=== PATIENT | male | born 1985 | race Caucasian/White ===

== ENCOUNTER 2016-06-15 23:27 | Emergency (ER) | payer BC, OTHER ==
[2016-06-16 00:37] VITALS: BP 129/83; PULSE 80; TEMP 98.2; BMI 29.2
[2016-06-16] MEDS ORDERED: DIPHTH,PERTUSS(ACELL),TET VAC 0.5 ML VIAL IM ONE (00:46)
[2016-06-16] MEDS ORDERED: BACITRACIN 30 GM TUBE TOPICAL OINTMENT TP ONE (00:47)
--- NOTE | 2016-06-16 01:09 | PDOC ---
History of Present Illness - General History Source: Patient Exam Limitations: No Limitations - History of Present Illness Initial Comments: 06/16/16 01:29 The patient is a 31 year old male with no significant past medical history, presenting to the Emergency Department with possible hand fracture and laceration. The patient reports that he punched a wall at home earlier in the night, injuring his right hand. He reports pain over his knuckles and a small cut to his knuckles with swelling. He admits that he is right handed. 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 He is unsure of when his last tetanus vaccination was. The patient denies any other injury. Patient denies numbness or tingling to hand. Patient denies limited range of motion of fingers. <Tesha Prasad - Last Filed: 06/16/16 01:29> <Pauly Gupta - Last Filed: 06/16/16 04:03> - General Chief Complaint: Pain Stated Complaint: RT HAND INJURY Time Seen by Provider: 06/16/16 00:36 Past History <Tesha Prasad - Last Filed: 06/16/16 01:29> - Psycho/Social/Smoking Cessation Hx Anxiety: No Suicidal Ideation: No Smoking Status: No Smoking History: Never smoked Have you smoked in the past 12 months: No Number of Cigarettes Smoked Daily: 0 Information on smoking cessation initiated: No Hx Alcohol Use: No Drug/Substance Use Hx: No <Pauly Gupta - Last Filed: 06/16/16 04:03> - Past Medical History Allergies/Adverse Reactions: Allergies Allergy/AdvReac Type Severity Reaction Status Date / Time No Known Allergies Allergy Verified 06/16/16 00:34 Home Medications: Ambulatory Orders NK [No Known Home Medication] 06/16/16 Review of Systems - Review of Systems Able to Perform ROS?: Yes Comments:: 06/16/16 01:29 GENERAL/CONSTITUTIONAL: No fever or chills. No weakness. HEAD, EYES, EARS, NOSE AND THROAT: No change in vision. No ear pain or discharge. No sore throat. CARDIOVASCULAR: No chest pain or shortness of breath. RESPIRATORY: No cough, wheezing, or hemoptysis. GASTROINTESTINAL: No nausea, vomiting, diarrhea or constipation. GENITOURINARY: No dysuria, frequency, or change in urination. MUSCULOSKELETAL: + pain at right hand knuckles, + swelling. No muscle pain. No neck or back pain. SKIN: No rash NEUROLOGIC: No headache, vertigo, loss of consciousness, or change in strength/ sensation. ENDOCRINE: No increased thirst. No abnormal weight change. HEMATOLOGIC/LYMPHATIC: No anemia, easy bleeding, or history of blood clots. ALLERGIC/IMMUNOLOGIC: No hives or skin allergy. <Tesha Prasad - Last Filed: 06/16/16 01:29> *Physical Exam - Vital Signs Last Vital Signs Temp Pulse Resp BP Pulse Ox 98.2 F 80 20 129/83 98 06/16/16 00:34 06/16/16 00:34 06/16/16 00:34 06/16/16 00:34 06/16/16 00:34 - Physical Exam Comments: 06/16/16 01:29 GENERAL: Awake, alert, and fully oriented, in no acute distress HEAD: No signs of trauma EYES: PERRLA, EOMI, sclera anicteric, conjunctiva clear ENT: Auricles normal inspection, hearing grossly normal, nares patent, oropharynx clear without exudates. Moist mucosa EXTREMITIES: Swelling and tenderness over the 5th MCP joint. Normal range of motion, no edema. No clubbing or cyanosis. No cords, erythema NEUROLOGICAL: Cranial nerves II through XII grossly intact. Normal speech, normal gait SKIN: Warm, Dry, normal turgor, no rashes or lesions noted. <Tesha Prasad - Last Filed: 06/16/16 01:29> - Vital Signs Last Vital Signs Temp Pulse Resp BP Pulse Ox 98.2 F 80 20 129/83 98 06/16/16 00:34 06/16/16 00:34 06/16/16 00:34 06/16/16 00:34 06/16/16 00:34 <Pauly Gupta - Last Filed: 06/16/16 04:03> ED Treatment Course - Medications Given in the ED: ED Medications Discontinued Medications Generic Name Dose Route Start Last Admin Trade Name Freq PRN Reason Stop Dose Admin Bacitracin 1 applic 06/16/16 00:47 06/16/16 00:56 Bacitracin - TP 06/16/16 00:48 1 applic ONCE ONE Administration Diphtheria/Tetanus/Acell Pertussis 0.5 ml 06/16/16 00:46 06/16/16 00:56 Adacel Adolescent/Adult - IM 06/16/16 00:47 0.5 ml .ONCE ONE Administration <Tesha Prasad - Last Filed: 06/16/16 01:29> Medical Decision Making - Medical Decision Making 06/16/16 04:01 Pt punched a wall and comes with 5th MCP joint swelling. He has a boxer's fx, as evidenced on XR. He has FROM, and good capillary refill. He was placed in an ulnar gutter splint and he will be sent to Dr. Artis ([facility]) for follow up and casting as needed. Pt works for [employer], and I will give him a note for work. <Pauly Gupta - Last Filed: 06/16/16 04:03> *DC/Admit/Observation/Transfer - Attestations Scribe Attestion: 06/16/16 01:30 Documentation prepared by Tesha Prasad, acting as certified medical coding specialist for Pauly Gupta MD. <Tesha Prasad - Last Filed: 06/16/16 01:29> - Discharge Dispostion Admit: No <Pauly Gupta - Last Filed: 06/16/16 04:03> Diagnosis at time of Disposition: Boxers fracture - Discharge Dispostion Disposition: HOME Condition at time of disposition: Stable - Referrals Referrals: Fitz Artis MD [Staff Physician] - - Patient Instructions Printed Discharge Instructions: DI for Boxer's Fracture - Post Discharge Activity Work/School Note: Back to Work
[2016-06-16] MEDS ORDERED: IBUPROFEN 600 MG TABLET (FP) PO ONE ×2 (01:33→01:34)
== END 2016-06-16 01:36 | disposition home or self-care (01) ==
LOC: JER 23:27
PROC: 2W38X1Z Immobilization of Right Upper Extremity using Splint (ICD-10-PCS; principal; 2016-06-15)
DX: S62.396A Other fracture of fifth metacarpal bone, right hand, initial encounter for closed fracture (principal); W22.8XXA Striking against or struck by other objects, initial encounter; Y93.89 Activity, other specified; Y92.038 Other place in apartment as the place of occurrence of the external cause
CPT/HCPCS: 73130-TC-RT; 99282-25

== ENCOUNTER 2018-02-28 08:42 | Emergency (ER) | payer OTHER ==
[2018-02-28 08:46] VITALS: BP 103/58; PULSE 59; TEMP 97.8; BMI 29.9
--- NOTE | 2018-02-28 09:29 | PDOC ---
History of Present Illness - General Chief Complaint: Syncope/Near Syncope Stated Complaint: DIZZINESS Time Seen by Provider: 02/28/18 09:01 History Source: Patient Exam Limitations: No Limitations - History of Present Illness Initial Comments: 02/28/18 09:18 32 yo M with no past medical history presents to the emergency department after a near syncopal episode while at Admission/Registration after a blood draw. Per the patient, he has never had this happen before. After the blood draw, he felt lightheaded, nauseous, and had blurry vision but denies LOC. He was fasting for the tests with last meal and water intake last night. He was recently placed on macrobid and pyridium for a suspected UTI by his PMD last Saturday after having dysuria beginning saturday with resolution of symptoms yesterday. The patient states he has had one partner for the last few months and denies hx of STDs. Denies the following: fever, chills, nausea, vomiting, ears/nose/throat pain, chest pain, SOB, abdominal pain, hematuria, diarrhea, dysuria, hematochezia, palpitations, and leg pain/swelling. Pmhx: None Shx: None Allergies: NKDA Social: Denies tobacco, alcohol, and substance abuse. Past History - Past Medical History Allergies/Adverse Reactions: Allergies Allergy/AdvReac Type Severity Reaction Status Date / Time No Known Allergies Allergy Verified 02/28/18 08:46 Home Medications: Ambulatory Orders NK [No Known Home Medication] 06/16/16 COPD: No Other medical history: denies - Immunization History Immunization Up to Date: Yes - Suicide/Smoking/Psychosocial Hx Smoking Status: No Smoking History: Never smoked Have you smoked in the past 12 months: No Number of Cigarettes Smoked Daily: 0 Hx Alcohol Use: Yes Drug/Substance Use Hx: No Substance Use Type: None Review of Systems - Review of Systems Able to Perform ROS?: Yes Is the patient limited Bolivian proficient: No Constitutional: No: Chills, Diaphoresis, Fever, Weakness HEENTM: No: Eye Pain, Recent change in vision, Ear Pain, Nose Pain, Throat Pain , Mouth Pain Respiratory: No: Cough, Shortness of Breath, Hemoptysis Cardiac (ROS): No: Chest Pain, Lightheadedness, Palpitations, Syncope, Chest Tightness ABD/GI: No: Constipated, Diarrhea, Nausea, Poor Appetite, Poor Fluid Intake, Rectal Bleeding, Vomiting, Tarry Stools : No: Burning, Dysuria, Hematuria, Urgency, Testicular Mass, Testicular Swelling, Testicular Pain Musculoskeletal: No: Back Pain, Joint Pain, Neck Pain Integumentary: No: Lesions, Lumps, Rash Neurological: No: Headache, Numbness, Tremors, Weakness, Ataxia, Dizziness Psychiatric: No: Stressors Endocrine: No: Unexplained Weight Gain Hematologic/Lymphatic: No: Anemia *Physical Exam - Vital Signs Last Vital Signs Temp Pulse Resp BP Pulse Ox 97.8 F 59 L 20 103/58 L 99 02/28/18 08:44 02/28/18 08:44 02/28/18 08:44 02/28/18 08:44 02/28/18 08:44 - Physical Exam General Appearance: Yes: Nourished, Appropriately Dressed. No: Apparent Distress, Intoxicated HEENT: positive: EOMI, MARCELLO, Normal ENT Inspection, Normal Voice, Symmetrical, TMs Normal, Pharynx Normal, Hearing Grossly Normal. negative: Pale Conjunctivae , Scleral Icterus (R), Scleral Icterus (L), Muffled/Hoarse voice, Nasal Congestion, Sinus Tenderness, Excessive drooling Neck: positive: Trachea midline. negative: Tender, Lymphadenopathy (R), Lymphadenopathy (L), Tender lateral, Tender midline Respiratory/Chest: positive: Lungs Clear, Normal Breath Sounds. negative: Chest Tender, Respiratory Distress, Accessory Muscle Use, Crackles, Rales, Rhonchi, Stridor, Wheezing, Hyperresonant Cardiovascular: positive: Regular Rhythm, Regular Rate, S1, S2. negative: Systolic Murmur Gastrointestinal/Abdominal: positive: Normal Bowel Sounds, Flat, Soft. negative : Tender, Pulsatile Mass, Distended Lymphatic: negative: Adenopathy Musculoskeletal: positive: Normal Inspection. negative: CVA Tenderness, Vertebral Tenderness Extremity: positive: Normal Capillary Refill, Normal Inspection, Normal Range of Motion. negative: Tender, Swelling, Calf Tenderness Integumentary: positive: Normal Color, Dry, Warm. negative: Pale, Cold, Clammy , Diaphoresis, Moist Neurologic: positive: financial assistance specialist II-XII NML intact, Fully Oriented, Alert, Normal Mood/ Affect, Normal Response, Motor Strength 5/5. negative: Facial Droop, Sensory Deficit Moderate Sedation - Procedure Monitoring Vital Signs: Procedure Monitoring Vital Signs Temperature 97.8 F 02/28/18 08:44 Pulse Rate 59 L 02/28/18 08:44 Respiratory Rate 20 02/28/18 08:44 Blood Pressure 103/58 L 02/28/18 08:44 O2 Sat by Pulse Oximetry (%) 99 02/28/18 08:44 Medical Decision Making - Medical Decision Making 02/28/18 10:07 32 yo M with no past medical history presents to the emergency department after a near syncopal episode while at Admission/Registration after a blood draw Initial vitals: Initial Vital Signs Temp Pulse Resp BP Pulse Ox 97.8 F 59 L 20 103/58 L 99 02/28/18 08:44 02/28/18 08:44 02/28/18 08:44 02/28/18 08:44 02/28/18 08:44 Work up: ddx: syncope (vasovagal vs cardiac vs metabolic disturbance vs infectious etiology). Laboratory Tests 02/28/18 02/28/18 10:00 10:00 Urine Color Yellow Urine Appearance Clear Urine pH 5.0 Ur Specific Park 1.027 Urine Protein 1+ H Urine Glucose (UA) Negative Urine Ketones Negative Urine Blood Negative Urine Nitrite Positive Urine Bilirubin Negative Urine Urobilinogen 4.0 e.u/dl Ur Leukocyte Esterase Negative Urine WBC (Auto) 1 Urine RBC (Auto) 1 Urine Mucus Few C. trachomatis (JERRY) Negative N. gonorrhoeae (JERRY) Negative His labs were drawn previously and were within normal limits. Per the patient, he was diagnosed with a UTI from his pMD and started on macorbid and pyridium. 02/28/18 12:31 Refused prophylactic antibiotics for possible STD infection. At the time of discharge, the patient was re-evaluated. He remained asymptomatic , well appearing, and was able to ambulate on his own volition. I discussed the physical exam findings, ancillary test results, and final diagnoses with the patient. I answered all of the patients questions to their satisfaction. The patient was satisfied with the care received and felt comfortable with the discussed discharge and treatment plan and accepted it. They agreed to follow up with their primary medical physical physician within 24 -72 hours after discharge for follow up care and management Dispo: Discharge *DC/Admit/Observation/Transfer Diagnosis at time of Disposition: Near syncope - Discharge Dispostion Disposition: HOME Decision to Admit order: No - Referrals Referrals: Muriel Sullivan MD [Primary Care Provider] - - Patient Instructions Additional Instructions: You were seen in the emergency department for the evaluation of your near syncopal episode earlier today. your EKG and labs were within normal limits. you refused the prophylactic antibiotics for possible underlying infection. you will have a follow up phone call if it yields a positive results. please follow up with your primary medical doctor within the week for further care and management. please return to the emergency department if you have worsening pain , fevers/chills, and uncontrollable nausea and vomiting. thank you. - Post Discharge Activity Forms/Work/School Notes: Back to Work
--- NOTE | 2018-02-28 09:57 | PDOC ---
Attending Attestation - HPI HPI: 02/28/18 10:02 The patient is a 32 year old male with no significant past medical history who presents to the emergency department after a witnessed near syncopal episode after a blood draw today. He states he felt lightheaded, nauseous, and had blurry vision following having his blood drawn, but denies LOC. He states he had been fasting in preparation for the blood work since last night. Secondarily, he states he was started on macrobid and pyridium for a suspected UTI by his PMD last Saturday after having dysuria, however, reports the dysuria has now resolved. He states he was presenting to have blood work to test for STDs. The patient states he has had one partner for the last few months and denies hx of STDs. He denies any other complaints at this time. The patient denies chest pain, shortness of breath, headache and dizziness. The patient denies fever, chills, nausea, vomit, diarrhea and constipation. The patient denies dysuria, frequency, urgency and hematuria. Allergies: NKDA - Physicial Exam PE: 02/28/18 10:02 Vitals: Triage vital signs reviewed General Appearance: No acute distress, well nourished, well developed Head: Atraumatic Eyes: Pupils equal reactive round, extraocular movement intact Neck: Supple; No nuchal rigidity Chest Wall: Nontender Cardiac: Regular rate and rhythm, no murmurs, no rubs, no gallops Lungs: Clear to auscultation bilateral, good air movement bilaterally Abdomen: Soft, nondistended, normal bowel sounds, nontender to palpation Extremities: Full range of motion to all extremities, no cyanosis, clubbing, or edema Skin: Warm and dry, no rashes or lesions, no rash, no petechiae Neuro: AOX3; Cranial Nerves 2-12 grossly intact, Strength intact to all extremities, Sensation intact to all extremities, gait normal Psych: Normal mood, normal affect - Medical Decision Making 02/28/18 10:02 Documentation prepared by Janina Thomas, acting as medical billing coder for Viraj Jones MD, <Janina Thomas - Last Filed: 02/28/18 10:02> - Resident Resident Name: Reagan Kerr - ED Attending Attestation I have performed the following: I have examined & evaluated the patient, The case was reviewed & discussed with the resident, I agree w/resident's findings & plan, Exceptions are as noted - Medical Decision Making History and examination consistent with vagal syncope, in the context of fasting overnight for blood work this morning. Episode of lightheadedness and blurry vision happened while getting blood drawn this morning. Patient now feels much better vital signs stable laboratory analysis EKG within normal limits EKG demonstrates sinus rhythm [address] elevations or T-wave inversions no evidence of WPW, Brugada, prolonged QT Patient also diagnosed with UTI? Last week placed on Macrobid and Pyridium Patient is currently sexually active 1 partner however there was a concern and patient sent to the ED for STD testing STD testing sent patient would like to be empirically treated, tracks on azithromycin ordered we'll follow up results Findings, need for follow-up and strict return instructions discussed patient. <Viraj Jones - Last Filed: 02/28/18 12:45>
[2018-02-28 10:15] LABS: URINE APPEARANCE CLEAR; URINE BILIRUBIN NEGATIVE (<2.0 mg/dL); URINE GLUCOSE (UA) NEGATIVE (NEGATIVE); URINE KETONE NEGATIVE (NEGATIVE); URINE LEUK ESTERASE NEGATIVE (NEGATIVE); URINE NITRITE POSITIVE (NEGATIVE); URINE PROTEIN 1+ (NEGATIVE); URINE UROBILINOGEN 4.0 E.U/dl mg/dL (0.2-1.0)
[2018-02-28 11:31] LABS: URINE COLOR YELLOW
[2018-02-28 11:39] LABS: URINE MUCUS FEW
--- NOTE | 2018-05-06 10:58 | EKG ---
Test Reason : Blood Pressure : / mmHG Vent. Rate : 055 BPM Atrial Rate : 055 BPM P-R Int : 156 ms QRS Dur : 108 ms QT Int : 414 ms P-R-T Axes : 010 032 032 degrees QTc Int : 396 ms SINUS BRADYCARDIA NONSPECIFIC T WAVE ABNORMALITY ABNORMAL ECG NO PREVIOUS ECGS AVAILABLE Confirmed by Danilo Goddard MD ([id number]) on 05/06/2018 10:58:29 AM Referred By: Confirmed By:Danilo Goddard MD
== END 2018-02-28 12:30 | disposition home or self-care (01) ==
LOC: JER 08:42
DX: R55 Syncope and collapse (principal)
CPT/HCPCS: 36415; 81003; 81015; 87086; 87491; 87591; 93005; 93010; 99282-25